=== PATIENT | male | born 1975 ===

== ENCOUNTER 2017-03-18 11:07 | Emergency (ER) | payer OTHER ==
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
[2017-03-18 13:21] VITALS: BP 125/63; PULSE 70; RESP 17; TEMP 98.3
--- NOTE | 2017-03-18 15:17 | RAD ---
PROCEDURE: Right Knee Radiographs. HISTORY: knee injury COMPARISON: None. FINDINGS: BONES: Normal. No fracture. JOINTS: Normal. No osteoarthritis. JOINT EFFUSION: None. OTHER FINDINGS: None. IMPRESSION: Normal radiographs of the right knee.
[2017-03-19 13:48] VITALS: O2SAT 98
== END 2017-03-18 12:56 | disposition home or self-care (01) ==
LOC: H.ER 11:07
DX: S83.91XA Sprain of unspecified site of right knee, initial encounter (principal); W19.XXXA Unspecified fall, initial encounter; Y99.0 Civilian activity done for income or pay